=== PATIENT | female | born 1975 | race Hispanic/Latino ===

== ENCOUNTER 2021-02-01 11:48 | Emergency (ER) | payer SELFPAY ==
--- NOTE | 2021-02-01 12:05 | PC.NURSE ---
Pt does not have insurance and daughter thought this was a free testing facility. Pt does not speak Grenadian and daughter speaks minimal Grenadian. Daughter given directions to the free testing facility at [facility].
== END 2021-02-01 12:05 | disposition left against medical advice (07) ==
PROVIDERS: Emergency Provider Internal Medicine Hematology & Oncology
DX: Z53.21 Procedure and treatment not carried out due to patient leaving prior to being seen by health care provider (principal)
CPT/HCPCS: 99199

== ENCOUNTER 2023-09-25 06:55 | Emergency (ER) | payer BC, SELFPAY ==
--- NOTE | ~2023-09-25 | CT_ITS ---
EXAMINATION: CT cervical spine wo con DATE: 09/25/2023 07:47 INDICATION: Neck injury. Upper and lower extremity pain. TECHNIQUE: Computed tomography (CT) of the cervical spine was performed without intravenous contrast. Automated exposure control and iterative reconstruction technique were employed. The dose-length pro duct was 515.11 mGy-cm. COMPARISON: None FINDINGS: Calcified mediastinal and right neck lymph nodes are consistent with old granulomatous dise ase. There is 4 degrees levocurvature of cervical spine. There is mild kyphosis of cervical spine. Ve rtebral body heights and intervertebral disc heights are normal. The following disc levels are specif ically discussed: C2-C3: There is no uncovertebral joint osteoarthritis. There is severe right and mild left facet join t osteoarthritis. There is no neural foraminal stenosis. There is no central canal stenosis. C3-C4: There is mild bilateral uncovertebral joint osteoarthritis. There is no facet joint osteoarthr itis. There is no neural foraminal stenosis. There is mild central canal stenosis. C4-C5: There is mild bilateral uncovertebral joint osteoarthritis. There is mild bilateral facet join t osteoarthritis. There is no neural foraminal stenosis. There is mild central canal stenosis. C5-C6: There is mild bilateral uncovertebral joint osteoarthritis. There is severe left facet joint o steoarthritis. There is mild left neural foraminal stenosis. There is no central canal stenosis. C6-C7: There is mild left uncovertebral joint osteoarthritis. There is mild bilateral facet joint ost eoarthritis. There is no neural foraminal stenosis. There is no central canal stenosis. C7-T1: There is no uncovertebral joint osteoarthritis. There is severe right and moderate left facet joint osteoarthritis. There is mild right neural foraminal stenosis. There is no central canal stenos is. IMPRESSION: 1. No fracture. 2. Mild cervical spondylosis. Reviewed, dictated and finalized at location E.
--- NOTE | ~2023-09-25 | XR_ITS ---
EXAMINATION: XR knee LT 3V DATE: 09/25/2023 08:05 INDICATION: Left knee pain. Fall. TECHNIQUE: 3 views of left knee were obtained. COMPARISON: None. FINDINGS: Bone alignment is normal. No fracture. There is mild tricompartmental osteoarthritis. No kn ee joint effusion. IMPRESSION: 1. Mild left knee osteoarthritis. Reviewed, dictated and finalized at location E.
--- NOTE | ~2023-09-25 | XR_ITS ---
EXAMINATION: XR wrist RT min 3V DATE: 09/25/2023 08:04 INDICATION: Right wrist pain. Fall. TECHNIQUE: 4 views of right wrist were obtained. COMPARISON: None. FINDINGS: Bone alignment is normal. No fracture. Joint spaces are normal. IMPRESSION: 1. No fracture. Reviewed, dictated and finalized at location E. IMPRESSION: 1. No fracture.
[2023-09-25 06:59] VITALS: BP 149/98; PULSE 95; RESP 18; TEMP 36.6; O2SAT 100
--- NOTE | 2023-09-25 07:21 | ED.EXTPRO ---
HPI - Extremity Problem General Chief complaint: Extremity Problem,Nontraumatic Stated complaint: Extremity pain to arms and legs Time Seen by Provider: 09/25/23 07:05 History of Present Illness HPI Narrative: This is a 47-year-old female, with history of arthritis, presenting to the emergency department complaining of pain to the bilateral shoulders, right wrist and left knee. The patient states she fell in her bedroom. She complains of moderate dull right wrist pain, moderate bilateral shoulder soreness associated with tingling and numbness in the hands and moderate to severe dull left knee pain. She denies head injury or loss of consciousness. She has no other complaints at this time. She states she is taken naproxen at home without relief. Related Data Home Medications Medication Instructions Recorded Confirmed gabapentin 300 mg capsule mg 09/25/23 hydrochlorothiazide 12.5 mg capsule mg 09/25/23 levothyroxine 125 mcg tablet mcg 09/25/23 propranolol 40 mg tablet mg 09/25/23 telmisartan 80 mg tablet mg 09/25/23 Allergies Allergy/AdvReac Type Severity Reaction Status Date / Time No Known Allergies Allergy Verified 09/25/23 06:57 Review of Systems Review of Systems: CONSTITUTIONAL: Denies fever, chills, or sweats. CARDIOVASCULAR: Denies chest pain, palpitations, or edema. RESPIRATORY: Denies cough or dyspnea. GASTROINTESTINAL: Denies abdominal pain, nausea, vomiting, or diarrhea. GENITOURINARY: Denies dysuria or hematuria. SKIN: Denies rash or itching. MUSCULOSKELETAL: Bilateral shoulder soreness, right wrist and left knee pain denies or myalgia. NEUROLOGIC: Denies headache, numbness, dizziness, or weakness. PSYCHIATRIC: Denies anxiety or depression. PMFSH Past Medical History Medical History Arthritis No significant past medical history Social History Social History (Updated 09/25/23 @ 07:23 by Brandon Hemphill MD) Smoking status: Never smoker Alcohol intake: never Substance use: never Exam Narrative: GENERAL: Well-developed, well-nourished, and in no acute distress. Appears uncomfortable HEAD: Normocephalic, atraumatic. EYES: PERRLA and EOMI. ENT: Nares clear, no rhinorrhea or epistaxis. Mucous membranes moist. Oropharynx without tonsillar hypertrophy exudate or other lesions. NECK: Supple. Some midline spine tenderness to palpation over C6-C7, without step-off or crepitus. Tenderness and muscle spasm noted to palpation over the bilateral trapezius muscles. CHEST: Clear to auscultation. No respiratory distress. No wheezes rales or rhonchi HEART: Regular rate and rhythm. No murmur heard. Normal peripheral pulses. ABDOMEN: Soft, nontender, nondistended, normal active bowel sounds. EXTREMITIES: Small amount of swelling and tenderness noted to the medial aspect of the right wrist. Mild tenderness palpation of the anterior aspect of the left knee. Normal range of motion. No edema. SKIN: Hyperpigmentation of the bilateral hands, consistent with vitiligo. Skin otherwise warm, dry, no rash. NEURO: Alert and oriented x3. Moving all 4 limbs purposefully. PSYCH: Normal mood and affect. Course Course Emergency Course: 09:00 - Imaging not concerning for fracture or dislocation. CT cervical spine demonstrates changes consistent with foraminal stenosis. I suspect this is the cause of the patient's arm pain. Xray of the left knee demonstrates arthritic changes. Will discharge with recommendation for primary care follow up. Discussed return and emergency precautions including signs/symptoms of cauda equina. The patient voiced understanding and is comfortable with the plan. All questions answered to her satisfaction Vital Signs Vital signs: Vital Signs Temperature 97.8 F 09/25/23 06:59 Pulse Rate 95 09/25/23 06:59 Respiratory Rate 18 09/25/23 06:59 Blood Pressure 149/98 H 09/25/23 06:59 Pulse Oximetry 100 10
[2023-09-25] MEDS: ACETAMINOPHEN 500 MG TABLET 1000 MG PO (07:28)
[2023-09-25] MEDS: LIDOCAINE 5% PATCH 2 PATCH TRANSDERM (07:28)
== END 2023-09-25 09:39 | disposition home or self-care (01) ==
PROVIDERS: Emergency Provider Preventive Medicine Aerospace Medicine
DX: M54.12 Radiculopathy, cervical region (principal); M25.562 Pain in left knee; M25.531 Pain in right wrist; Z79.899 Other long term (current) drug therapy
CPT/HCPCS: 72125; 73110; 73562; 99284; A9270

== ENCOUNTER 2024-04-02 13:03 | Emergency (ER) | payer BC, SELFPAY ==
--- NOTE | ~2024-04-02 | XR_ITS ---
EXAMINATION: XR chest 2V Exam Date/Time: 04/02/2024 16:05 CDT HISTORY: RICHARD leg swelling Comparison: None. RESULT: Lines, tubes, and devices: None. Lungs and pleura: Low volumes with crowding. Minimal streaky bibasilar atelectasis. No focal consoli dation, pleural effusion, or pneumothorax. Cardiomediastinal silhouette: Right hemidiaphragm elevation. Calcified hilar nodes. Other: No acute osseous or upper abdominal finding. Bilateral axillary lymph node calcifications. IMPRESSION: No acute cardiopulmonary process. Reviewed, dictated and finalized at location K.
--- NOTE | ~2024-04-02 | US_ITS ---
EXAMINATION: US venous doppler [facility] DATE: 04/02/2024 15:37 INDICATION: Lower limb swelling. TECHNIQUE: Grayscale ultrasound images without and with compression and Doppler ultrasound images of the bilateral lower extremity veins were obtained. COMPARISON: None. FINDINGS: The visualized portions of right common femoral vein, profunda (deep) femoral vein, femoral vein, pop liteal vein, peroneal veins, posterior tibial veins, and greater saphenous vein outflow are patent. The visualized portions of left common femoral vein, profunda femoral vein, femoral vein, popliteal v ein, peroneal veins, posterior tibial veins, and greater saphenous vein outflow are patent. IMPRESSION: 1. No deep venous thrombosis. Reviewed, dictated and finalized at location A.
--- NOTE | ~2024-04-02 | US_ITS ---
EXAMINATION: US abdomen limited DATE: 04/02/2024 18:16 INDICATION: elevated LFTs TECHNIQUE: Multiple grayscale and Doppler ultrasound images of limited portions of the abdomen were o btained. COMPARISON: None available. FINDINGS: The visualized portions of the pancreas are normal. Enlarged liver with echogenic parenchym a. No surface nodularity. Normal hepatopetal flow in the main portal vein. Contracted gallbladder wit h wall thickening and pericholecystic fluid. The common bile duct measures 5 mm. There was a positive sonographic Sanchez sign. IMPRESSION: Echogenic liver, most commonly due to steatosis but also can be seen with hepatitis and fibrosis. Gallbladder wall thickening may be secondary to contracted state, chronic liver disease, or inflammat ion/edema. Pericholecystic fluid with a positive sonographic Sanchez sign. Correlate for right upper quadrant patricia n and with biliary labs. Biliary scanning and/or MRCP may be helpful for further evaluation. Reviewed, dictated and finalized at location K. IMPRESSION: Echogenic liver, most commonly due to steatosis but also can be seen with hepat itis and fibrosis. Gallbladder wall thickening may be secondary to contracted state, chronic liver disease, or inflammation/edema. Pericholecystic fluid with a positive sonographic Sanchez sign. Correlate for ri ght upper quadrant pain and with biliary labs. Biliary scanning and/or MRCP may be helpful for further evaluation.
--- NOTE | ~2024-04-02 | XR_ITS ---
EXAM: XR knee RT 3V, XR knee LT 3V DATE: 04/02/2024 16:10 (accession [id number]), 04/02/2024 16:09 (accession [id number]) HISTORY: fall, pain . COMPARISON: X-ray left knee 09/25/2023. FINDINGS: Normal mineralization. No fracture or dislocation. No lytic or blastic lesion. Mild bilate ral tricompartmental osteoarthritis. Small bilateral joint effusions. No erosion or periosteal change . Soft tissues within normal limits. IMPRESSION: No acute osseous finding in the bilateral knees. Reviewed, dictated and finalized at location K. IMPRESSION: No acute osseous finding in the bilateral knees.
[2024-04-02 13:24] VITALS: BP 101/72; PULSE 90; RESP 15; TEMP 36.9; O2SAT 100
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
[2024-04-02 14:47] LABS: Basophils Percent Auto 0.3 % (0.2-1.2); Eosinophils Absolute Auto 0.2 K/mm3 (0-0.3); Eosinophils Percent Auto 2.6 % (0-4.4); Hematocrit 34.6 % (37.0-47.0); Hemoglobin 11.1 g/dL (12.0-15.0); Immature Granulocyte Absolute 0.04 K/mm3 (0.00-0.031); Immature Granulocyte Percent A 0.7 % (0-0.5); Lymphocytes Absolute Auto 0.74 K/mm3 (0.9-3.2); Lymphocytes Percent Auto 12.6 % (18.3-44.2); Mean Corpuscular HGB Conc 32.1 g/dl (32-36); Mean Corpuscular Hemoglobin 30.2 pg (26-34); Mean Corpuscular Volume 94.3 fl (80-100); Mean Platelet Volume 9.1 fl (7.4-10.4); Monocytes Absolute Auto 0.7 K/mm3 (0.1-0.6); Monocytes Percent Auto 11.6 % (2.6-8.5); Neutrophils Absolute Auto 4.2 K/mm3 (1.3-6.7); Neutrophils Percent Auto 72.2 % (45.5-73.1); Platelet Count Result 262 k/mm3 (150-375); Red Blood Count 3.67 M/mm3 (4.2-5.4); White Blood Count 5.9 K/mm3 (4.5-10.0)
[2024-04-02 14:59] LABS: Alanine Aminotransferase 110 U/L (6-35); Alkaline Phosphatase 217 U/L (38-126); Anion Gap 6 mmol/L (4-12); Aspartate Amino Transferase 248 U/L (14-36); Bilirubin,Total 1.2 mg/dL (0.2-1.3); Blood Urea Nitrogen 9 mg/dL (7-17); Calcium 8.4 mg/dL (8.4-10.2); Carbon Dioxide 20 mmol/L (22-30); Chloride 105 mmol/L (98-107); Creatine Kinase 712 U/L (30-135); Estimated CRCL calculation 99 ml/min; Estimated Glomerular Filt Rate > 60; Glucose 87 mg/dL (65-110); Sodium 131 mmol/L (137-145)
[2024-04-02 15:08] LABS: NT Pro B Type Natriuretic Pept 869 pg/mL (19.9-100)
[2024-04-02] MEDS: ACETAMINOPHEN 500 MG TABLET 1000 MG PO (15:31)
[2024-04-02 16:43] LABS: Lipase 88 U/L (23-300)
[2024-04-02 18:31] VITALS: BP 101/61; PULSE 74; RESP 21; O2SAT 100
[2024-04-02 18:54] LABS: Hepatitis B Surface Antigen Negative (Negative)
[2024-04-02 19:00] LABS: HAV RESULT Negative (Negative); Hepatitis B Core IgM Result Negative (Negative)
--- NOTE | 2024-04-02 19:10 | PC.NURSE ---
This RN assumed care of pt after receiving nurse report from DEBBIE Motta.
[2024-04-02 19:12] LABS: Hepatitis C Virus Antibody Negative (Negative)
[2024-04-02 22:00] VITALS: BP 105/73; PULSE 81; RESP 22; O2SAT 100
== END 2024-04-02 22:00 | disposition home or self-care (01) ==
PROVIDERS: Emergency Provider Student in an Organized Health Care Education/Training Program
DX: M79.89 Other specified soft tissue disorders (principal); R94.5 Abnormal results of liver function studies; M19.90 Unspecified osteoarthritis, unspecified site
CPT/HCPCS: 36415; 71046; 73562; 76705; 80053; 80074; 82550; 83690; 83880; 85025; 93970; 99284; A9270